=== PATIENT | female | born 1970 | race Caucasian/White ===

== ENCOUNTER 2017-01-14 18:44 | Emergency (ER) | payer OTHER ==
[~2017-01-14 18:44] MED LIST: MOTRIN800 MG PO; PERCOCET 325 MG1 TA2 PO
--- NOTE | 2017-01-14 20:17 | RADIOLOGY REPORT ---
EXAMINATION: XR CHEST CLINICAL INFORMATION: Cough and fever. COMPARISON: None TECHNIQUE: 2 views of the chest were obtained. FINDINGS: No significant abnormality is noted involving the heart, lungs, mediastinum, bony thorax or soft tissues. IMPRESSION: Unremarkable chest examination.
--- NOTE | 2017-01-14 21:06 | ED DYSPNEA/ASTHMA COMPLAINT ---
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 PT REPORTS HAD TUBES YIED. Triage Nurses Notes Reviewed? yes : No Patient currently breastfeeds: No HPI: This patient is a 46-year-old female with a past medical history including bronchitis 2 presented to the emergency department today for evaluation of cough chest to her when she coughs. She reported, "my lungs just hurt all the time." She denied any fevers or chills. She denied any abdominal pain, nausea, vomiting, back pain, or any other associated symptoms. This patient is a current smoker although she reported, "I have not had a cigarette in 18 days." The patient reported that she has been helping one of her family members around their house and has been exposed to quite a bit of dust. No unilateral leg swelling, no hemoptysis, no exogenous estrogen use, no recent travel, no prolonged immobilization, no recent hospitalizations, no recent trauma or surgery. (PEDRO SAGE,COY) Vital Signs & Intake/Output Vital Signs & Intake/Output Vital Signs Date Time Temp Pulse Resp B/P Pulse O2 O2 Flow FiO2 Ox Delivery Rate 01/15 2220 98.6 89 18 127/79 97 Room Air 01/14 2151 94 01/14 2130 97 Room Air 01/14 1927 99.8 100 26 143/92 97 Room Air ED Intake and Output 01/15 0000 01/14 1200 Intake Total 0 Output Total Balance 0 Intake, IV 0 Patient 200 lb Weight Reconcile Medications Azithromycin 250 MG TABLET 1 DP PO AD BRONCHITIS 2 the first day followed by 1 for days 2-5 Benzonatate (Tessalon Perle) 100 MG CAPSULE 1 CAP PO TID PRN COUGH Cholecalciferol (Vitamin D3) (Vitamin D3) 1,000 UNIT CAPSULE 1 CAP PO DAILY HEALTH SUPPLEMENT (Reported) Esomeprazole (Nexium) 40 MG CAPSULE.DR 1 CAP PO DAILY ACID REFLUX (Reported) Methylprednisolone. (Medrol) 4 MG TAB.DS.PK 1 DP PO AD BRONCHITIS 6 on day 1 then reduce by one tablet daily until gone Zolpidem Tartrate (Zolpidem Tartrate ER) 6.25 MG TAB.MPHASE 1 TAB PO QPM ANXIETY (Reported) (MERT FISHER,NEERAJ) Past History Travel History Traveled to [place] past 21 day No Medical History Any Pertinent Medical History? see below for history Neurological: NONE EENT: NONE Cardiovascular: NONE Respiratory: NONE Gastrointestinal: GERD Hepatic: NONE Renal: NONE Musculoskeletal: NONE Psychiatric: NONE Endocrine: NONE Blood Disorders: NONE Surgical History Surgical History: non-contributory Psychosocial History What is your primary language Polish Tobacco Use: Quit <30 days ago Daily Tobacco Use Amount/Type: => 5 Cigarettes daily Family History Hx Contributory? No (COY VASQUEZ PA-C) Review of Systems Review of Systems Constitutional: Reports: no symptoms. EENTM: Reports: no symptoms. Respiratory: Reports: see HPI. Cardiovascular: Reports: no symptoms. GI: Reports: no symptoms. Genitourinary: Reports: no symptoms. Musculoskeletal: Reports: no symptoms. Skin: Reports: no symptoms. Neurological/Psychological: Reports: no symptoms. All Other Systems: Reviewed and Negative (COY VASQUEZ PA-C) Physical Exam Physical Exam Respiratory: chest non-tender, EXPIRATORY WHEEZES HEARD IN ALL LUNG [place]. nO RALES OR RHONCHI. nO DIMINISHED BREATH SOUNDS OR STRIDOR Comments: Well-developed well-nourished person in no acute distress HEENT: Normal EENT exam, moist mucous membranes PERRLA bilaterally No pharyngeal injection, tonsillar exudates, or oropharyngeal lesions or edema Neck: Supple, no lymphadenopathy Back: Normal gait Cardiovascular: Regular rate and rhythm with no murmurs, rubs, or gallops Abdomen: Soft, nontender, and nondistended Extremity: No edema, no calf tenderness to palpation, normal and equal pulses. Neuro: Alert oriented x3, motor sensory normal, cranial nerves II through XII grossly intact. Skin: No appreciable rash on exposed skin, skin is warm and dry. Psych: Mood and affect is normal Core Measures ACS in differential dx? No Severe Sepsis Present: No Septic Shock Present: No (COY VASQUEZ PA-C) Progress Differential Diagnosis: asthma, AMI, altitude sickness, bronchitis, costochondritis, CHF, COPD, musculoskeletal pain, pericarditis, pulmonary embolism, pneumonia, pneumothorax, rib fracture, unstable angina Initial ED EKG: none (PEDRO SAGE,COY) Plan of Care: Orders Procedure Date/time Status D-DIMER 01/15 2056 Complete COMPREHENSIVE METABOLIC PANEL 01/15 2056 Complete CBC WITHOUT DIFFERENTIAL 01/15 2056 Complete Laboratory Tests 01/14/172102: Anion Gap 10, Estimated GFR 54 L, BUN/Creatinine Ratio 10.9, Glucose 107 H, Calcium 9.4, Total Bilirubin 0.4, AST 32, ALT 41, Alkaline Phosphatase 88, Total Protein 6.8, Albumin 4.1, Globulin 2.7, Albumin/Globulin Ratio 1.5, D-Dimer < 200, CBC w Diff NO MAN DIFF REQ, RBC 4.21, MCV 98.8, MCH 32.7 H, RDW 12.4, MPV 8.0, Gran % 74.6, Lymphocytes % 15.6 L, Monocytes % 8.9, Eosinophils % 0.7, Basophils % 0.2, Absolute Granulocytes 5.4, Absolute Lymphocytes 1.1 L, Absolute Monocytes 0.6, Absolute Eosinophils 0, Absolute Basophils 0, PUBS MCHC 33.1 Microbiology 01/15 2056 NASOPHARYN: Influenza Virus A & B Rapid Smear - CAN Cancelled: Cancelled via OE: Patient Refused Departure Departure Disposition: HOME OR SELF CARE Condition: Stable Clinical Impression Primary Impression: Bronchitis Referrals: VIOLA FISHER,REBEKAH Schaefer (PCP/Family) Additional Instructions: Take antibiotic as prescribed and for its full duration. Take Medrol Dosepak as directed. Take medication for cough as prescribed. Follow-up with your primary care physician. Return for any worsening symptoms or concerns. Departure Forms: Customer Survey General Discharge Information Prescriptions: Current Visit Scripts Azithromycin 1 DP PO AD #6 TAB 2 the first day followed by 1 for days 2-5 Benzonatate (Tessalon Perle) 1 CAP PO TID PRN COUGH #12 CAP Methylprednisolone. (Medrol) 1 DP PO AD #1 DP 6 on day 1 then reduce by one tablet daily until gone (COY VASQUEZ PA-C) PA/AIRPLANE DISPATCHER Co-Sign Statement Statement: ED Attending supervision documentation- [] I saw and evaluated the patient. I have also reviewed all the pertinent lab results and diagnostic results. I agree with the findings and the plan of care as documented in the PA's/AIRPLANE DISPATCHER's documentation. [X] I have reviewed the ED Record and agree with the PA's/AIRPLANE DISPATCHER's documentation. [] Additions or exceptions (if any) to the PAs/AIRPLANE DISPATCHER's note and plan are summarized below: [] (MERT FISHER,NEERAJ) Critical Care Note Critical Care Note Critical Care Time: non-applicable (PEDRO SAGE,COY)
[2017-01-14 21:10] LABS: ABSOLUTE BASOPHIL COUNT 0 /CUMM (0.0-0.2); ABSOLUTE EOSINOPHIL COUNT 0 /CUMM (0.0-0.7); ABSOLUTE GRANULOCYTE CT 5.4 /CUMM (1.4-6.5); ABSOLUTE LYMPH COUNT 1.1 /CUMM (1.2-3.4); ABSOLUTE MONOCYTE COUNT 0.6 /CUMM (0.10-0.60); BASOPHIL % 0.2 % (0.0-2.0); EOSINOPHIL % 0.7 % (0-5); GRANULOCYTE % 74.6 % (42.2-75.2); HEMATOCRIT 41.6 % (37-47); MEAN CORPUSCULAR HGB 32.7 PG (27.0-31.0); MEAN CORPUSCULAR HGB CONC 33.1 G/DL (33.0-37.0); MEAN CORPUSCULAR VOLUME 98.8 FL (81.0-99.0); PLATELET COUNT 213 /CUMM (130-400); RBC DISTRIBUTION WIDTH 12.4 % (11.5-14.5); RED BLOOD CELL CT 4.21 /CUMM (4.20-5.40); WHITE BLOOD CELL COUNT 7.2 /CUMM (4.8-10.8)
[2017-01-14] MEDS ORDERED: ZOLPIDEM TART6.25 M1 PO (21:36)
[2017-01-14] MEDS ORDERED: NEXIUM40 M1 PO (21:36)
[2017-01-14] MEDS ORDERED: VITAMIN D31000 UNI1 PO (21:37)
[2017-01-14] MEDS ORDERED: AZITHROMYCIN250 M1 PO (21:55)
[2017-01-14] MEDS ORDERED: MEDROL4 M2 PO (21:55)
[2017-01-14] MEDS ORDERED: TESSALON PERLE100 M1 PO (21:55)
[2017-01-14 22:20] VITALS: BP 127/79
== END 2017-01-14 22:26 ==
LOC: ERH 18:44
PROVIDERS: Physician Assistant
DX: J40 Bronchitis, not specified as acute or chronic (principal); Z87.891 Personal history of nicotine dependence
CPT/HCPCS: 1263; 87804; 87804-59

== ENCOUNTER 2017-04-09 11:04 | Emergency (ER) | payer OTHER ==
[~2017-04-09] VITALS: Ht 165.1 cm; Wt 93.0 kg
[~2017-04-09 11:04] MED LIST changes: +AZITHROMYCIN250 M1 PO; +MEDROL4 M2 PO; +NEXIUM40 M1 PO; +TESSALON PERLE100 M1 PO; +VITAMIN D31000 UNI1 PO; +ZOLPIDEM TART6.25 M1 PO
--- NOTE | 2017-04-09 11:17 | ED INFLUENZA/URI COMPLAINT ---
History of Present Illness General Chief Complaint: Upper Respiratory Sx/Fever Stated Complaint: REFERRED BY 'S OFFICE FOR ?TB Source: patient Exam Limitations: no limitations Vital Signs & Intake/Output Vital Signs & Intake/Output Vital Signs Date Time Temp Pulse Resp B/P B/P Pulse O2 O2 Flow FiO2 Mean Ox Delivery Rate 04/09 1409 98.0 88 20 140/80 98 Room Air 04/09 1246 87 20 150/80 98 Room Air 04/09 1210 96 04/09 1130 98 Room Air 04/09 1108 97.9 96 18 138/90 99 Room Air Allergies Coded Allergies: codeine (Intermediate, HIVES 03/07/16) Penicillins (Intermediate, CHEST PAIN 03/07/16) erythromycin base (Intermediate, GI DISTRESS 03/07/16) Reconcile Medications Albuterol Sulfate (Proventil Hfa) 90 MCG HFA.AER.AD 2 PUF INH 4 TIMES/DAY RESP (Reported) Benzonatate (Tessalon Perle) 100 MG CAPSULE 1 CAP PO TID PRN COUGH Esomeprazole (Nexium) 40 MG CAPSULE.DR 1 CAP PO PRN PRN GERD (Reported) Hydroxychlorquine (Plaquenil) 200 MG TABLET 1 TAB PO BID FIBROMYALGIA ( Reported) Levofloxacin (Levaquin) 750 MG TABLET 1 TAB PO DAILY URI (Reported) Methylprednisolone. (Medrol) 4 MG TAB.DS.PK 1 DP PO AD BRONCHITIS 6 on day 1 then reduce by one tablet daily until gone Varenicline Tartrate (Chantix) 1 MG TABLET 1 MG PO D QUIT SMOKING (Reported) Triage Note: 47 Y/O FEMALE SENT BY PCP FOR ? TB - PT STATES SHE HAS HAD URI SYMPTOMS FOR APPROX 1 WEEK. NICOLE AT WALK IN AND PRESCRIBED LEVAQUIN, TESSLON PEARLS, PREDNISONE AND PLAQUENIL - HAS BEEN TAKING ALL WITH NO RELIEF. STATES SHE HAD AN OUTPATIENT XRAY YESTERDAY AND HER DOCTOR CALLED HER STATING TO COME TO ED FOR FURTHER EVAL. PT STATES SHE IS FEELING BETTER TODAY. MASK IN PLACE. AFEBRILE Triage Nurses Notes Reviewed? yes : No Patient currently breastfeeds: No HPI: 47 yo Fm PMH Fibromyalgia, RA (on plaquinil) presenting with URI Sx, concern for TB on outpatient CXR. URI Sx for the last 3-4 days with non-productive cough, congestion. Evaluated by PMD 2 days ago, started on tessalon pearls, levofloxacin, prednisone with improvement in symptoms. CXR preformed, results returned today with "Mild fibronodular changes in the right apex from non-acute granulomatous infection ... Impression: Granulomatous infection (possible tuberculosis) of inditerminate activity. Suggest testing for tuberculosis. Otherwise no active disease", sent to ED by PMD. Denies fevers, chills, chest pain, night sweats, hemoptysis. No travel outside of the country, never homeless or incarcerated, no known TB contacts. (CASSIDY JOY MD) Past History Travel History Traveled to [place] past 21 day No Medical History Any Pertinent Medical History? see below for history Neurological: NONE EENT: NONE Cardiovascular: NONE Respiratory: NONE Gastrointestinal: GERD Hepatic: NONE Renal: NONE Musculoskeletal: fibromyalgia, rheumatoid arthritis Psychiatric: NONE Endocrine: NONE Blood Disorders: NONE Surgical History Surgical History: non-contributory Psychosocial History What is your primary language [place] Tobacco Use: Quit >30 days ago Family History Hx Contributory? No (CASSIDY JOY MD) Review of Systems Review of Systems Constitutional: Reports: malaise. Denies: chills, fever, weakness. EENTM: Reports: no symptoms. Respiratory: Reports: cough, short of breath, wheezing. Denies: hemoptysis, sputum production. Cardiovascular: Denies: chest pain, palpitations, peripheral edema, syncope. GI: Reports: no symptoms. Genitourinary: Reports: no symptoms. Musculoskeletal: Reports: no symptoms. Skin: Reports: no symptoms. Neurological/Psychological: Reports: no symptoms. Hematologic/Endocrine: Reports: no symptoms. Immunologic/Allergic: Reports: no symptoms. All Other Systems: Reviewed and Negative (CASSIDY JOY MD) Physical Exam Physical Exam General Appearance: well developed/nourished, no apparent distress, alert, awake Eyes: Bilateral: normal appearance. Ears, Nose, Throat: normal ENT inspection, moist mucous membrane Neck: normal inspection, full range of motion Respiratory: no respiratory distress Cardiovascular: regular rate/rhythm, normal peripheral pulses Gastrointestinal: normal bowel sounds, soft, non-tender Neurologic/Psych: no motor/sensory deficits Comments: Pulmonary: Normal WOB without respiratory distress, Non-productive bronchospastic cough, Diffuse harsh expiratory wheezes on auscultation Core Measures Severe Sepsis Present: No Septic Shock Present: No (CASSIDY JOY MD) Progress Differential Diagnosis: influenza, meningitis, neutropenia, otitis, pneumonia, pharyngitis, sinusitis Plan of Care: Orders Procedure Date/time Status AEROSOL (GEN) 04/09 1241 Complete Physician MDM: 47 yo formerly [facility] Fibromyalgia, RA (on plaquinil) presenting with URI Sx, concern for TB on outpatient CXR. VSS, saturating well on RA, pulmonary exam as above. Albuterol nebulizer given with improvement in pumonary exam and subjective respiratory status per patient. CXR unremarkable as read by Dr. Vaughn. Discussed read with 2nd in house radiologist who also reviewd CXR and reviewed read from outpatient CXR, no evidence of granulomatous changes in RUL. Given overall low concern for TB (based on lack of risk factors) with normal repeat CXR as interpreted by 2 radiologists, no inpatient testing for TB required. Plan of care discussed with PA demolition engineer for Dr. Kc, agrees with management, will see for follow up. Discharged with return precautions, plan to continue treatment for URI as prescribed by PMD. (BENITA FISHER,CASSIDY) Initial ED EKG: none (CASSIDY JOY MD) Departure Departure Disposition: HOME OR SELF CARE Condition: Stable Clinical Impression Primary Impression: Cough Secondary Impressions: Bronchitis Referrals: VIOLA FISHER,REBEKAH Schaefer (PCP/Family) Additional Instructions: Continue medications as prescribed by your primary care physician. Follow up with your primary care physician in the next 2-3 days. Return to the ED for any new, worsenig, or concerning symptoms. \\ EXAM TYPE: RAD - XRY-CHEST XRAY, PA AND LATERAL EXAMINATION: XR CHEST CLINICAL INFORMATION: Cough. Granulomatous lesions concerning for TB on outside chest radiography. COMPARISON: Chest x-ray 01/14/2017. TECHNIQUE: 2 views of the chest were obtained. FINDINGS: No new significant abnormality is noted involving the heart, lungs, mediastinum, bony thorax or soft tissues. IMPRESSION: No evidence of active tuberculosis. No significant interval change compared to prior radiography. DICTATED BY: HAVEN VAUGHN MD DATE/TIME DICTATED:04/09/171313 [employer]:JOE DATE/TIME TRANSCRIBED:04/09/171313 Departure Forms: Customer Survey General Discharge Information (CASSIDY JOY MD) PA/BALE STACKER Co-Sign Statement Statement: ED Attending supervision documentation- [] I saw and evaluated the patient. I have also reviewed all the pertinent lab results and diagnostic results. I agree with the findings and the plan of care as documented in the PA's/BALE STACKER's documentation. [X] I have reviewed the ED Record and agree with the PA's/BALE STACKER's documentation. [] Additions or exceptions (if any) to the PAs/BALE STACKER's note and plan are summarized below: [] (MIGUEL FLETCHER DO) ED Attending Observation Initial Observation Note: I have seen and personally examined JACOB PALMA on 04/09/17 at 1727. I agree with the current emergency department documentation. The disposition (admission or discharge) is uncertain at this time, she needs a period of observation for the following reason(s): The ED Nurse caring for this patient has been personally informed as to what the patient is being observed for. (BENITA FISHER,CASSIDY)
[2017-04-09] MEDS ORDERED: CHANTIX1 MG PO (12:47)
[2017-04-09] MEDS ORDERED: LEVAQUIN750 M1 PO (12:48)
[2017-04-09] MEDS ORDERED: PROVENTIL HFA6.7 GM INH (12:48)
[2017-04-09] MEDS ORDERED: PLAQUENIL200 M1 PO (12:48)
--- NOTE | 2017-04-09 13:18 | RADIOLOGY REPORT ---
EXAMINATION: XR CHEST CLINICAL INFORMATION: Cough. Granulomatous lesions concerning for TB on outside chest radiography. COMPARISON: Chest x-ray 01/14/2017. TECHNIQUE: 2 views of the chest were obtained. FINDINGS: No new significant abnormality is noted involving the heart, lungs, mediastinum, bony thorax or soft tissues. IMPRESSION: No evidence of active tuberculosis. No significant interval change compared to prior radiography.
[2017-04-09 14:09] VITALS: BP 140/80
== END 2017-04-09 14:10 ==
LOC: ERH 11:04
DX: J40 Bronchitis, not specified as acute or chronic (principal); Z87.891 Personal history of nicotine dependence
CPT/HCPCS: 1263